=== PATIENT | male | born 1950 | race Caucasian/White ===

== ENCOUNTER → 2017-08-12 09:54 | Outpatient (CLI) | payer MEDICARE, OTHER, SELFPAY ==
[2017-08-12 11:19] LABS: AST(SGOT) 14 U/L (15-37); Alanine Aminotransfer ALT/SGPT 32 U/L (16-61); Albumin, Serum 4.2 g/dL (3.2-5.0); Alkaline Phosphatase 73 U/L (45-117); Bilirubin, Direct 0.28 mg/dL (0.00-0.30); Cholesterol 95 mg/dL (200); Globulin 2.8 g/dL (2.2-4.2); High Density Lipoprotein 41 mg/dL; Triglycerides 103 mg/dL; Very Low Density Lipoprotein 21 mg/dL (5-40)
== END ==
PROVIDERS: Family Provider Family Medicine; PCP Family Medicine; Visit Provider Nurse Practitioner Family
DX: I10 Essential (primary) hypertension (principal); E78.5 Hyperlipidemia, unspecified
CPT/HCPCS: 36415; 80061; 80076

== ENCOUNTER → 2017-09-14 06:51 | Outpatient (CLI) | payer MEDICARE, OTHER, SELFPAY ==
--- NOTE | 2017-09-14 16:50 | STRESSREP ---
Stress Test Report Exercise myocardial perfusion stress test. 67-year-old man with a history of coronary artery disease. FAA physical. Stress protocol: Resting EKG demonstrates normal sinus rhythm with a rate of 65 bpm. Resting blood pressure is 122/76 mmHg. The patient exercised according to the regular Casimiro protocol for total duration of 9 minutes completing stage III of the Casimiro protocol. The maximum heart rate attained was 166 bpm which was 109% of the maximum predicted heart rate the maximum workload was 10.1 metabolic equivalents. The patient maintained sinus rhythm throughout the recording. At rest there were no ST or T-wave changes noted suggest ischemia and at peak exercise upsloping ST changes only were noted with normally the criteria for ischemia. No clinical angina was noted no arrhythmias were noted. The test was terminated due to leg fatigue. The resting blood pressure was 122/76 with a peak blood pressure 168/80 mmHg. The rate pressure product was 27,800. Myocardial perfusion protocol: 14.9 mCi of technetium 99m sestamibi was injected at rest. The patient exercised according to regular Casimiro protocol for 9 minutes attaining 10.1 metabolic equivalents. At peak exercise 44.6 mCi of technetium 99m sestamibi was injected. Stress images were obtained. Stress and rest images were reconstructed and compared in the short axis vertical long and horizontal long axis. Gated images were also obtained. Perfusion SPECT analysis: Review of the stress images demonstrate normal uptake of tracer noted in the septum anterior wall and lateral wall. There is reduced perfusion noted in the basal and mid inferior wall on the stress and resting images to a similar extent. Previous inferior infarct or diaphragmatic attenuation cannot be excluded. No ischemia however is noted. Gated SPECT analysis. The gated ejection fraction is noted to be 66% with no wall motion abnormalities present. Conclusion: Normal exercise myocardial perfusion stress test at a high workload with no evidence of ischemia. Preserved ejection fraction.
== END ==
PROVIDERS: Family Provider Family Medicine; PCP Family Medicine; Visit Provider Nurse Practitioner Family
DX: I25.10 Atherosclerotic heart disease of native coronary artery without angina pectoris (principal); I10 Essential (primary) hypertension; E78.5 Hyperlipidemia, unspecified
CPT/HCPCS: 78452; 93017; A9500; A4216

== ENCOUNTER → 2018-03-25 11:21 | Outpatient (CLI) | payer MEDICARE, OTHER, SELFPAY ==
[2018-03-25 12:17] LABS: AST(SGOT) 14 U/L (15-37); Alanine Aminotransfer ALT/SGPT 23 U/L (16-61); Albumin, Serum 3.9 g/dL (3.2-5.0); Alkaline Phosphatase 58 U/L (45-117); Bilirubin, Direct 0.33 mg/dL (0.00-0.30); Cholesterol 110 mg/dL (200); Globulin 2.8 g/dL (2.2-4.2); High Density Lipoprotein 44 mg/dL; Protein, Total 6.7 g/dL (6.4-8.2); Triglycerides 104 mg/dL; Very Low Density Lipoprotein 21 mg/dL (5-40)
== END ==
PROVIDERS: Family Provider Family Medicine; PCP Family Medicine; Visit Provider Internal Medicine Cardiovascular Disease
DX: I10 Essential (primary) hypertension (principal); E78.5 Hyperlipidemia, unspecified
CPT/HCPCS: 36415; 80061; 80076

== ENCOUNTER → 2019-06-02 10:10 | Outpatient (CLI) | payer MEDICARE, OTHER, SELFPAY ==
[2019-06-02 09:26] VITALS: BMI 30.7
[2019-06-02 11:37] LABS: AST(SGOT) 14 U/L (15-37); Alanine Aminotransfer ALT/SGPT 22 U/L (16-61); Albumin, Serum 4.1 g/dL (3.2-5.0); Alkaline Phosphatase 139 U/L (45-117); Bilirubin, Direct 0.19 mg/dL (0.00-0.30); Cholesterol 180 mg/dL (200); High Density Lipoprotein 54 mg/dL; Protein, Total 7.1 g/dL (6.4-8.2); Triglycerides 265 mg/dL; Very Low Density Lipoprotein 53 mg/dL (5-40)
== END ==
PROVIDERS: Family Provider Family Medicine; PCP Family Medicine; Referring Provider Internal Medicine Cardiovascular Disease; Visit Provider Internal Medicine Cardiovascular Disease
DX: E78.2 Mixed hyperlipidemia (principal)
CPT/HCPCS: 36415; 80061; 80076

== ENCOUNTER → 2020-05-31 09:35 | Outpatient (CLI) | payer MEDICARE, OTHER, SELFPAY ==
[2020-05-31 12:20] LABS: AST(SGOT) 15 U/L (15-37); Alanine Aminotransfer ALT/SGPT 32 U/L (16-61); Albumin, Serum 4.1 g/dL (3.2-5.0); Alkaline Phosphatase 92 U/L (45-117); Bilirubin, Direct 0.23 mg/dL (0.00-0.30); Cholesterol 142 mg/dL (200); Globulin 2.7 g/dL (2.2-4.2); High Density Lipoprotein 46 mg/dL; Protein, Total 6.8 g/dL (6.4-8.2); Triglycerides 156 mg/dL; Very Low Density Lipoprotein 31 mg/dL (5-40)
== END ==
PROVIDERS: PCP Family Medicine; Referring Provider Internal Medicine Cardiovascular Disease; Visit Provider Internal Medicine Cardiovascular Disease
DX: I25.10 Atherosclerotic heart disease of native coronary artery without angina pectoris (principal); Z95.5 Presence of coronary angioplasty implant and graft
CPT/HCPCS: 36415; 80061; 80076

== ENCOUNTER → 2020-06-06 05:54 | Outpatient (CLI) | payer MEDICARE, OTHER, SELFPAY ==
[2020-05-31 09:08] VITALS: BMI 30.5
--- NOTE | 2020-06-06 16:33 | STRESSREP ---
Stress Test Report Exercise myocardial perfusion stress test. 69-year-old male with a history of LAD stenting and hypertension. Stress protocol: Resting EKG demonstrates sinus bradycardia with a rate of 57 bpm normal intervals are noted resting blood pressure is 142/86 mmHg. The patient exercised according to regular Casimiro protocol for a total duration of 6 minutes. The maximum heart rate attained was 142 bpm which was 95% of max impacted heart rate the maximum workload was 7 metabolic equivalents. The test was terminated due to target heart rate being achieved. At rest there were no EKG changes noted to suggest ischemia. The resting blood pressure was 142/86 with a peak blood pressure 194/88 mmHg. Myocardial perfusion protocol. 14.7 mCi of technetium 99m sestamibi was injected at rest. The patient exercised according to regular Casimiro protocol for total duration of 6 minutes. At peak exercise 44.6 mCi of technetium 99m sestamibi was injected stress images were obtained stress and rest images were reconstructed and compared in the short axis vertical long horizontal long axis. Gated images were also obtained Perfusion SPECT analysis: Review of the stress images demonstrate normal uptake of tracer noted in all areas of myocardium except for small portion of the inferior wall. The resting images similar demonstrate normal uptake of tracer noted in all areas of the myocardium. There appears to be mild ischemia involving the inferior wall.. Gated SPECT analysis of the gated ejection fraction is noted to be 65%. There is some GI uptake noted. Conclusion: Exercise myocardial perfusion stress test with possible mild inferior ischemia. Preserved ejection fraction. Compared to 2 years ago the exercise capacity appears to be markedly reduced.
== END ==
PROVIDERS: PCP Family Medicine; Referring Provider Internal Medicine Cardiovascular Disease; Visit Provider Internal Medicine Cardiovascular Disease
DX: Z95.5 Presence of coronary angioplasty implant and graft (principal)
CPT/HCPCS: 78452; 93017; A9500; A4216

== ENCOUNTER → 2020-06-09 10:14 | Outpatient (CLI) | payer MEDICARE, OTHER, SELFPAY ==
[2020-05-31 09:08] VITALS: BMI 30.5
--- NOTE | 2020-06-09 10:17 | RAD_ITS ---
STUDY: X-RAY CHEST REASON FOR EXAM: Male, 69 years old. PRE HEART CATH TECHNIQUE: PA and lateral views of the chest. COMPARISON: 12/06/2014 FINDINGS: The lungs are clear and expanded. There is no demonstrated pleural abnormality. Normal size heart. Normal mediastinum and kalpesh. Normal visualized pulmonary arteries. Normal visualized aortic arch and descending thoracic aorta. Normal visualized thoracic spine. Normal visualized ribs, clavicles, and shoulders. There is no demonstrated abnormality of the visualized soft tissue structures of the upper abdomen. RAD/Chest PA and Lateral IMPRESSION: Normal x-ray examination of the chest. Electronically Signed: Kevin Mendiola DO at 11:17 EST Tel , Service support ,
[2020-06-09 11:12] LABS: Absolute Lymphocyte Count 1.18 X10^3/uL (0.83-4.51); Absolute Neutrophil Count 2.8 X10^3/uL (2.0-7.7); Basophil# 0.03 X10^3/uL; Basophil% 0.7 % (0-1); Eosinophil# 0.12 X10^3/uL; Eosinophils% 2.7 % (0-5); Hematocrit 47.4 % (40-54); Hemoglobin 16.5 g/dL (13.0-16.5); Lymphocyte # 1.18 X10^3/ul (4.0); Lymphocyte % 26.5 % (19-41); Mean Corp Hgb Conc 34.8 g/dL (32-36); Mean Corpuscular Hgb 31.2 pg (27.0-32.0); Mean Corpuscular Volume 89.6 fL (80-94); Mean Platelet Vol. 9.7 fl (6.2-12.0); Monocyte# 0.31 X10^3/uL; NRBC Flagged by Analyzer 0 % (0-5); Neutrophil % 62.9 % (47-70); Platelet Count 207 K/mm3 (150-450); RBC Distribution Width CV 12.3 % (11.6-14.6); RBC Distribution Width SD 40.2 fl (35.1-43.9); Red Blood Count 5.29 M/mm3 (4.6-6.2); White Blood Count 4.5 K/mm3 (4.4-11.0)
[2020-06-09 11:51] LABS: AST(SGOT) 16 U/L (15-37); Alanine Aminotransfer ALT/SGPT 28 U/L (16-61); Albumin, Serum 3.9 g/dL (3.2-5.0); Alkaline Phosphatase 96 U/L (45-117); Anion Gap 4 (5-15); BUN 13 mg/dL (7-18); Bilirubin, Direct 0.22 mg/dL (0.00-0.30); Calcium,Total 8.8 mg/dL (8.5-10.1); Chloride 106 mmol/L (98-107); Cholesterol 161 mg/dL (200); Creatinine, Serum 1.18 mg/dL (0.70-1.30); EST Glomerular Filtration Rate 65 mL/min (>60); Est Glom Filt Rate - Afr Amer 78 mL/min (>60); Globulin 2.9 g/dL (2.2-4.2); Glucose 199 mg/dL (74-106); High Density Lipoprotein 46 mg/dL; Potassium 3.8 mmol/L (3.5-5.1); Protein, Total 6.8 g/dL (6.4-8.2); Sodium Level 140 mmol/L (136-145); Triglycerides 247 mg/dL; Very Low Density Lipoprotein 49 mg/dL (5-40)
== END ==
PROVIDERS: PCP Family Medicine; Referring Provider Internal Medicine Cardiovascular Disease; Visit Provider Internal Medicine Cardiovascular Disease
DX: R94.39 Abnormal result of other cardiovascular function study (principal); R07.9 Chest pain, unspecified; I25.10 Atherosclerotic heart disease of native coronary artery without angina pectoris; I10 Essential (primary) hypertension; E78.5 Hyperlipidemia, unspecified; E78.00 Pure hypercholesterolemia, unspecified; Z95.5 Presence of coronary angioplasty implant and graft; Z79.02 Long term (current) use of antithrombotics/antiplatelets
CPT/HCPCS: 71046; 80048; 80061; 80076; 85025

== ENCOUNTER 2020-06-20 06:47 | Day surgery (SDC) | payer MEDICARE, OTHER, SELFPAY ==
[2020-05-31 09:08] VITALS: BMI 30.5
[2020-06-19 07:20] VITALS: BMI 30.5
--- NOTE | 2020-06-20 07:00 | HP_ITS ---
HPI HPI History of Present Illness Details: WOODY KERNS, is a 69 M who presents to the office today for a cardiovascular outpatient follow-up. He has a history of coronary artery disease status post stenting to his LAD and diagonal vessel bifurcation in December 2009, hypertension, hyperlipidemia, and MING with CPAP therapy. He does complain of some epigastric discomfort which appears to be constant. Is been the last 2 days. He has had no dizziness or diaphoresis no near syncope or syncope his last stress test was in 2017. His physical exam here demonstrates clear lung swain regular rate and rhythm and no pedal edema. Intake Vital Signs 05/31/20 Height 6 ft 05/31/20 Weight: 225 lb 05/31/20 BMI 30.5 05/31/20 BP 128/73 H 05/31/20 Respiration 16 05/31/20 Pulse 62 05/31/20 Pulse Oximetry (%) 96 Intake Visit Reasons: 1 Y FU Allergies codeine Adverse Reaction (Unknown, Verified 05/31/20 09:08) GI upset Sulfa (Sulfonamide Antibiotics) Adverse Reaction (Unknown, Verified 05/31/20 09:08) Unknown Medications aspirin 81 mg tablet,delayed release 81 mg PO QDAY 07/31/17 [History Confirmed 05/31/20] tamsulosin 0.4 mg capsule 0.4 mg PO QDAY 08/12/17 [History Confirmed 05/31/20] ramipril 2.5 mg capsule 2.5 mg PO DAILY #90 cap 07/18/19 [Rx Confirmed 05/31/20] atorvastatin 80 mg tablet 80 mg PO QDAY #90 tab 11/24/19 [Rx Confirmed 05/31/20] clopidogrel 75 mg tablet 75 mg PO QDAY #90 tab 04/03/20 [Rx Confirmed 05/31/20] finasteride 5 mg tablet 5 mg PO DAILY tab 05/31/20 [History Confirmed 05/31/20] fluorouracil 5 % topical cream applic TOPICAL 05/31/20 [History Confirmed 05/31/20] fluoxetine 20 mg capsule 20 mg PO DAILY cap 05/31/20 [History Confirmed 05/31/20] Ejection fraction %: 60 to 64 [facility] Medical History Atherosclerosis of [place] coronary artery of [place] heart without angina pectoris (Chronic) Essential (primary) hypertension (Chronic) Hyperlipidemia (Chronic) MING (obstructive sleep apnea) (Chronic) Obesity (Chronic) Surgical History History of coronary artery stent placement (Resolved 12/25/09) History of left heart catheterization (Chronic 11/02/12) History of arthroscopic knee surgery (Resolved) History of lithotripsy (Resolved) History of open reduction and internal fixation (ORIF) procedure (Resolved) History of open reduction and internal fixation (ORIF) procedure (Resolved 03/2019) History of tonsillectomy and adenoidectomy (Resolved) Family History Uncle CAD (coronary artery disease) Myocardial infarction Father Valvular heart disease Mother Brain tumor Social History (Updated 05/31/20 @ 10:[address] Xu Ponce MD) Smoking Status: Former smoker how long ago did patient quit smokin alcohol intake: current alcohol intake frequency: a few times a week Alcohol type: beer, wine substance use type: does not use diet: Weight Watchers, other caffeine: Yes Type: coffee Number of servings: 2 what type of physical activity do you participate in: none seatbelt use: always do you feel safe at home: Yes ROS Const Const: Negative for fatigue, weakness, headache(s), frequent falls, difficulty sleeping or excessive sweating Eyes Eyes: Negative for loss of peripheral vision, transient loss of vision, blurry vision, double vision or tunnel vision ENT ENT: Negative for headache(s), dizziness, Nosebleed/epistaxis or balance problems Cardio Chest Pain: Yes (constant dull epigastric pain for 2 days along with lumbar back pain) Palpitations: No Edema: None Muscle aches with walking: None Resp Respiratory: Negative for SOB with activity, SOB at rest, SOB orthopnea\SOB lying down, Cough or paroxysmal nocturnal dyspnea GI GI: Negative nausea, vomiting, heartburn or black,tarry stools : Negative for hematuria Musc Musc: Negative for muscle aches/ myalgia, muscle weakness, joint pain or balance problems Skin Skin: Negative non-healing lesions, rash or unusual bruising Neuro Neuro: Negative for dizziness, lightheadedness, near syncope, syncope, orthostatic symptoms, frequent falls, headache(s), weakness, blurry vision, double vision or lack of coordination Adolph Hematologic/Lymphatic: Negative for easy bleeding or easy bruising Endo Endo: Negative for fatigue, excessive sweating or increased thirst/drinking Psych Psych: Negative for anxiety or depression Allergy Allergy/Immunology: Negative for hives, Negative for rash Cardiology Exam Const Appearance: cooperative, healthy appearing, no acute distress, well developed and well groomed Nutritional Appearance: average body habitus and well nourished Orientation: alert, awake and oriented x3 Head Head: normal to inspection, normocephalic and atraumatic Ears: hearing grossly normal bilaterally and external ears normal Nose: external nose normal, nares normal, nasal mucous membranes and turbinates normal, septum normal, no nasal discharge Face and Sinus: face symmetric Mouth: oral mucosae normal, tongue normal, oropharynx normal and moist mucous membranes Teeth and gingiva: dentition normal Throat: posterior oropharynx normal, tonsils normal and uvula midline Eyes General: appearance normal, both eyes and all related structures Eyelids: eyelids normal Conjunctivae: conjunctivae normal Pupils: PERRL, normal by confrontation and accommodation normal EOM: EOM intact bilaterally Neck Neck: normal visual inspection, trachea midline and no JVD JVD: +5 Carotids: normal carotid upstroke and bounding pulses Chest Chest inspection: normal inspection of the chest, symmetric chest movement and normal respiratory effort Auscultation: Bilateral: Clear to Auscultation Cardio Palpation: normal PMI Rate: regular rate Rhythm: regular rhythm Heart sounds: S1 normal, S2 normal and normal, physiologic split S2; negative rub, gallop or murmur GI GI: normal to inspection, soft, no hepatosplenomegaly and bowel sounds present Neuro General: alert, awake, oriented x3, gait normal, moves all extremities and no focal sensory deficit Skin Skin: no rashes or lesions noted Extremities Pulses: Normal: Right Femoral Pulse, Left Femoral Pulse, Right Dorsalis Pedis Pulse, Left Dorsalis Pedis Pulse, Right Posterior Tibial Pulse, Left Posterior Tibial Pulse, Right Radial Pulse, Left Radial Pulse Lower Extremity Edema: None: Bilateral Musculoskel Musculoskeletal: No joint tenderness Psych Psychological: normal affect Assessment & Plan 1. History of coronary artery stent placement Z95.5 [id number] LAD/diagonal bifurication w/ 3.0 x 23 mm Promus 12/25/2009 Plan He is status post previous angioplasty and stenting of the left anterior descending artery. I would recommend at this time that we consider his stress test to exclude coronary ischemia. His epigastric discomfort though unusual could manifest the above. Depending on the findings further recommendations will be made. Orders Orders: Liver Profile Today Nuclear Stress Test - Treadmil Today 2. Essential (primary) hypertension I10 Plan He does have a history of hypertension his blood pressure is under good control at this particular time and I would not recommend that we make any changes. 3. Mixed hyperlipidemia E78.2 Plan He does have a history of hyperlipidemia. His most recent lipid profile is pending. He will remain on his high intensity statin. Thank you for allowing me to participate in his care. Plan Detail Other Orders Orders: Lipid Profile Today I25.10 Follow Up 1 Year (r) Coding Level of Care Code Off vis,est,level 3 Diagnoses History of coronary artery stent placement Z95.5 Essential (primary) hypertension I10 Mixed hyperlipidemia E78.2 ??Hyperlipidemia type: mixed hyperlipidemia Coding Level of Care Code Off vis,est,level 3 Diagnoses History of coronary artery stent placement Z95.5 Essential (primary) hypertension I10 Mixed hyperlipidemia E78.2 ??Hyperlipidemia type: mixed hyperlipidemia Supplemental Info Supplemental Information Labs LDL Cholesterol 73 mg/dL (0-130) 06/02/19 HDL Cholesterol 54 mg/dL (40-) 06/02/19 Triglycerides 265 mg/dL (-199) H 06/02/19 VLDL Cholesterol 53 mg/dL (5-40) H 06/02/19 Diagnostics Stress Test Nuclear Medicine 09/14/17 Stress Test 09/14/17
--- NOTE | 2020-06-20 09:00 | CL.D_ITS ---
Patient Name: WOODY KERNS Study Date: 06/20/2020 Performing: Xu Ponce MD Ht: 72.04 inches 183 cm : 1950 Wt: 224.87 lbs 102 kg Age: 69 Gender: male BSA: 2.24 PROCEDURE(S) PERFORMED [id number]/LV CLINICAL PROFILE AND INDICATIONS Indications: Suspected CAD Heart Failure: None Stress/Imaging Date: 06/06/2020Stress Test with SPECT MPI: Positive Intermediate Risk CAD Presentations: No Sxs, no angina. CONCLUSIONS Non obstructive coronary arteries RECOMMENDATIONS Medical therapy DESCRIPTION OF PROCEDURE The patient arrived to the procedure lab. The risks and benefits of the procedure as well as a full d escription of our services here and current unavailability of surgical backup were fully explained to the patient and/or their significant other prior to the catheterization. The Timeout was completed, verifying the correct patient and procedure. The patient's procedural site was prepped and draped in the usual fashion. Local anesthetic was given subcutaneously to right radial region with Lidocaine 2% . Using a modified Seldinger technique, arterial access was obtained via the right radial artery, a 6 Fr sheath was inserted. Right Coronary Artery selective angiography was performed in multiple views using a 5 Fr. 4.0 [place] catheter. Left Coronary Artery selective angiography was performed in multipl e views using a 5 Fr. 4.0 [place] catheter. Left Ventriculography was performed in ROLDAN projection using a 5 Fr. Pigtail catheter. LV to AO pullback pressures were then recorded.The arterial sheath was pulled and a TR Band was applied for hemostasis CORONARY ANGIOGRAPHY DOMINANCE: Right Dominant LEFT HEART ASSESSMENT Left Ventricular Ejection Fraction: by LV Gram 60 % Normal LV wall motion Normal Left Ventricular systolic function LEFT MAIN: Angiographically normal LEFT ANTERIOR DESCENDING ARTERY: No significant disease noted PROX LAD: Previously placed stent is patent CIRCUMFLEX ARTERY: Mild luminal irregularities less than 30% RIGHT CORONARY ARTERY: Mild luminal irregularities less than 30% COMPLICATIONS No Complications PROCEDURE MEDICATIONS Versed 1 mg IV Fentanyl 50 mcg IV Oxygen: 2 L/min via nasal cannula Heparin diluted in 23cc Heparinized saline. Patient given 10cc IA of this solution. 06/20/2020 08:12: 09 Verapamil 2.5mg, Ntg 100mcgs, 2000 units of Heparin diluted in 23cc Heparinized saline. Patient give n 10cc IA of this solution. 06/20/2020 08:12:09 SUMMARY OF HEMODYNAMIC DATA Time AIR REST ECG 07:03:26 AO 120/66 (86) SA 08:13:10 AO 144/72 (96) 08:33:03 LV 142/12, 25 08:45:00 LV 141/14, 25 08:45:06 LV 136/23, 28 08:45:41 LVp 137/21, 28 08:45:44 AOp 140/82 (108) 08:45:50 Signed By Xu Ponce MD On 06/20/2020 08:59:11 Xu Ponce MD
== END 2020-06-20 10:40 | disposition home or self-care (01) ==
LOC: CLSP 06:49
PROVIDERS: PCP Family Medicine; Referring Provider Internal Medicine Cardiovascular Disease; Visit Provider Internal Medicine Cardiovascular Disease
DX: I25.10 Atherosclerotic heart disease of native coronary artery without angina pectoris (principal); I10 Essential (primary) hypertension; G47.33 Obstructive sleep apnea (adult) (pediatric); Z79.899 Other long term (current) drug therapy; Z79.82 Long term (current) use of aspirin; Z79.02 Long term (current) use of antithrombotics/antiplatelets; E66.9 Obesity, unspecified; Z87.891 Personal history of nicotine dependence; Z68.30 Body mass index [BMI] 30.0-30.9, adult; E78.2 Mixed hyperlipidemia
CPT/HCPCS: 93458; 99152; 99153; J7040; Q9967; C1769; C1894

== ENCOUNTER → 2021-05-22 09:09 | Outpatient (CLI) | payer MEDICARE, OTHER, SELFPAY ==
[2021-05-22 11:04] LABS: AST(SGOT) 25 U/L (15-37); Alanine Aminotransfer ALT/SGPT 39 U/L (16-61); Albumin, Serum 3.8 g/dL (3.2-5.0); Alkaline Phosphatase 78 U/L (45-117); Bilirubin, Direct 0.31 mg/dL (0.00-0.30); Cholesterol 132 mg/dL (200); Globulin 2.9 g/dL (2.2-4.2); High Density Lipoprotein 44 mg/dL; Protein, Total 6.7 g/dL (6.4-8.2); Triglycerides 154 mg/dL; Very Low Density Lipoprotein 31 mg/dL (5-40)
== END ==
PROVIDERS: PCP Family Medicine; Referring Provider Nurse Practitioner Family; Visit Provider Nurse Practitioner Family
DX: E78.2 Mixed hyperlipidemia (principal)
CPT/HCPCS: 36415; 80061; 80076

== ENCOUNTER → 2022-06-12 | Outpatient (CLI) | payer MEDICARE, OTHER, SELFPAY ==
[2022-06-12 11:23] LABS: AST(SGOT) 14 U/L (15-37); Alanine Aminotransfer ALT/SGPT 29 U/L (16-61); Alkaline Phosphatase 70 U/L (45-117); Bilirubin, Direct 0.35 mg/dL (0.00-0.30); Cholesterol 119 mg/dL (200); Globulin 2.9 g/dL (2.2-4.2); High Density Lipoprotein 48 mg/dL; Protein, Total 6.9 g/dL (6.4-8.2); Triglycerides 110 mg/dL; Very Low Density Lipoprotein 22 mg/dL (5-40)
== END | disposition home or self-care (01) ==
PROVIDERS: PCP Family Medicine; Visit Provider Internal Medicine Cardiovascular Disease
DX: E78.5 Hyperlipidemia, unspecified (principal); I10 Essential (primary) hypertension; G47.33 Obstructive sleep apnea (adult) (pediatric)
CPT/HCPCS: 36415; 80061; 80076

== ENCOUNTER → 2022-06-27 | Outpatient (CLI) | payer MEDICARE, OTHER, SELFPAY ==
--- NOTE | 2022-06-27 06:28 | ECHOD_ITS ---
Reason For Study: CAD/ASHD Procedure This was a 2D Doppler, Color Flow transthoracic echocardiogram. Exam performed in department. Left Ventricle Normal LV size. Left ventricular systolic function is normal. The estimated ejection fraction is 60 %. Stage 1 diastolic dysfunction. No regional wall motion abnormalities noted. Right Ventricle Normal RV size. Normal systolic function. Atria Normal left atrium. Normal right atrium. Mitral Valve Normal mitral valve. Tricuspid Valve Normal tricuspid valve. Mild tricuspid valve insufficiency. Aortic Valve Trisinus/trileaflet aortic valve. Mild focal aortic valve calcification. Pulmonic Valve Normal pulmonic valve. Trivial pulmonic valve insufficiency. Great Vessels Normal aortic root. The pulmonary artery is normal size. Normal inferior vena cava. Pericardium/Pleural No pericardial effusion. MMode/2D Measurements & Calculations LVIDd: 4.3 cm IVSd: 0.99 cm LVOT diam: 2.1 cm LVIDs: 3.4 cm LVPWd: 1.3 cm LVOT area: 3.5 cm2 RVDd: 4.3 cm FS: 20.0 % Ao root diam: 3.0 cm LAV(MOD-bp): 74.4 ml LVAd ap4: 27.5 cm2 LAV(MOD-bp) Indexed: 34.1 ml/m2 LVLd ap4: 8.2 cm LAV(MOD-sp2): 88.9 ml EDV(MOD-sp4): 79.7 ml LAV(MOD-sp4): 60.7 ml EDV(sp4-el): 78.7 ml LVAs ap4: 16.3 cm2 LVLs ap4: 6.2 cm ESV(MOD-sp4): 35.4 ml ESV(sp4-el): 36.3 ml EF(MOD-sp4): 55.6 % EF(sp4-el): 53.9 % SV(MOD-sp4): 44.3 ml SV(sp4-el): 42.4 ml LA A4 area: 21.0 cm2 LA dimension(2D): 4.4 cm RA A4 area: 12.5 cm2 Time Measurements MV dec time: 0.26 sec Doppler Measurements & Calculations MV E max ethan: 57.9 cm/sec Lat Peak E' Ethna: 7.5 cm/sec Med Peak E' Ethan: 5.4 cm/sec MV A max ethan: 72.8 cm/sec E/E' lat: 7.7 E/E' med: 10.7 MV E/A: 0.80 MV V2 max: 81.8 cm/sec Ao V2 max: 154.5 cm/sec MV max P.7 mmHg MV dec slope: 228.0 cm/sec2 Ao max P.6 mmHg MV V2 mean: 44.0 cm/sec Ao V2 mean: 108.1 cm/sec MV mean P.90 mmHg Ao mean P.4 mmHg MV V2 VTI: 24.8 cm Ao V2 VTI: 34.9 cm AV (velocity ratio): 0.70 MVA(VTI): 3.4 cm2 MARIAMA(I,D): 2.4 cm2 MARIAMA(V,D): 2.3 cm2 LV V1 max: 102.8 cm/sec SV(LVOT): 84.7 ml PA V2 max: 83.7 cm/sec LV V1 max P.2 mmHg PA V2 mean: 50.6 cm/sec LV V1 mean P.2 mmHg LV V1 mean: 68.7 cm/sec LV V1 VTI: 24.4 cm ECHO/Echo Complete Interpretation Summary Normal LV size. Left ventricular systolic function is normal. The estimated ejection fraction is 60 %. Stage 1 diastolic dysfunction. Ordering Physician: Xu Ponce Referring Physician: MD Louis Josue Performed By: Chelo Garcia RCS
--- NOTE | 2022-06-27 16:36 | STRESSREP ---
Stress Test Report Exercise myocardial perfusion stress test. 71-year-old man with a history of chest pain Stress protocol: Resting EKG demonstrates normal sinus rhythm with a rate of 60 bpm resting blood pressure is 108/68 mmHg. The patient exercised according to the regular Casimiro protocol for a total duration of 8 minutes and 30 seconds attaining a maximum heart rate of 162 bpm which was 110% of max impacted heart rate the maximum workload was 10.1 metabolic equivalents. At rest there were no ST or T wave changes noted suggest ischemia and at peak exercise upsloping ST changes only were noted we did not meet the criteria for ischemia. No clinical angina was noted the test was terminated due to the target heart rate being achieved. The peak blood pressure was 200/80 mmHg. Rate-pressure product was 32,400. Myocardial perfusion protocol. 14.8 mCi of technetium 99m sestamibi was injected at rest. The patient exercised according to regular Casimiro protocol for total duration of 8 minutes and 30 seconds and at peak exercise 44.3 mCi of technetium 99m sestamibi was injected stress images were obtained stress and rest images were reconstructed in comparing the short axis vertical long and horizontal long axis. Gated images were also obtained. Perfusion SPECT analysis: Review of the stress images demonstrate normal uptake of tracer noted in all areas of the myocardium. The resting images similarly demonstrate normal uptake of tracer noted in all areas of the myocardium. No areas of reversibility are noted to suggest ischemia no previous infarct was noted. Gated SPECT analysis: The gated ejection fraction is 59. Conclusion: Normal exercise myocardial perfusion stress test at a high workload Preserved ejection fraction.
== END | disposition home or self-care (01) ==
LOC: CVS 06:28
PROVIDERS: PCP Family Medicine; Visit Provider Internal Medicine Cardiovascular Disease
DX: I25.10 Atherosclerotic heart disease of native coronary artery without angina pectoris (principal); R07.9 Chest pain, unspecified; Z95.5 Presence of coronary angioplasty implant and graft
CPT/HCPCS: 78452; 93017; 93306; A9500; A4216

== ENCOUNTER → 2023-06-15 | Outpatient (CLI) | payer MEDICARE, OTHER, SELFPAY ==
[2023-06-15 11:55] LABS: AST(SGOT) 17 U/L (15-37); Alanine Aminotransfer ALT/SGPT 28 U/L (16-61); Alkaline Phosphatase 75 U/L (45-117); Bilirubin, Direct 0.28 mg/dL (0.00-0.30); Cholesterol 115 mg/dL (200); Globulin 2.6 g/dL (2.2-4.2); High Density Lipoprotein 48 mg/dL; Protein, Total 6.6 g/dL (6.4-8.2); Triglycerides 103 mg/dL; Very Low Density Lipoprotein 21 mg/dL (5-40)
== END | disposition home or self-care (01) ==
LOC: LAB 10:02
PROVIDERS: PCP Family Medicine; Referring Provider Nurse Practitioner Family; Visit Provider Nurse Practitioner Family
DX: E78.00 Pure hypercholesterolemia, unspecified (principal)
CPT/HCPCS: 36415; 80061; 80076

== ENCOUNTER → 2024-06-20 | Outpatient (CLI) | payer MEDICARE, OTHER, SELFPAY ==
[2024-06-20 10:07] LABS: AST(SGOT) 17 U/L (15-37); Alanine Aminotransfer ALT/SGPT 27 U/L (16-61); Albumin, Serum 3.9 g/dL (3.2-5.0); Alkaline Phosphatase 81 U/L (45-117); Bilirubin, Direct 0.36 mg/dL (0.00-0.30); Cholesterol 128 mg/dL (200); Globulin 2.7 g/dL (2.2-4.2); High Density Lipoprotein 45 mg/dL; Protein, Total 6.6 g/dL (6.4-8.2); Triglycerides 131 mg/dL; Very Low Density Lipoprotein 26 mg/dL (5-40)
== END | disposition home or self-care (01) ==
LOC: LAB 09:23
PROVIDERS: PCP Family Medicine; Referring Provider Nurse Practitioner Family; Visit Provider Nurse Practitioner Family
DX: E78.00 Pure hypercholesterolemia, unspecified (principal)
CPT/HCPCS: 36415; 80061; 80076

== ENCOUNTER → 2024-07-15 | Outpatient (CLI) | payer MEDICARE, OTHER, SELFPAY ==
--- NOTE | 2024-07-15 09:38 | STRESSREP ---
Stress Test Report Exercise myocardial perfusion stress test. 73-year-old man with a history of chest pain Stress protocol: Resting EKG demonstrates normal sinus rhythm with a rate of 65 bpm resting blood pressure is 122/78 mmHg. The patient exercised according to the regular Casimiro protocol for a total duration of 8 minutes attaining a maximum heart rate of 155 bpm which was 106% of maximum predicted heart rate; the maximum workload was 10.1 metabolic equivalents. At rest there were no ST or T wave changes noted to suggest ischemia and at peak exercise upsloping ST changes only were noted which did not meet the criteria for ischemia. No clinical angina was noted the test was terminated due to the target heart rate being achieved/fatigue. The peak blood pressure was 170/72 mmHg. Rate-pressure product was 22,000. Myocardial perfusion protocol. 14.9 mCi of technetium 99m sestamibi was injected at rest. The patient exercised according to regular Casimiro protocol for total duration of 8 minutes and at peak exercise 44.3 mCi of technetium 99m sestamibi was injected stress images were obtained stress and rest images were reconstructed in comparing the short axis vertical long and horizontal long axis. Gated images were also obtained. Perfusion SPECT analysis: Review of the stress images demonstrate normal uptake of tracer noted in all areas of the myocardium. The resting images similarly demonstrate normal uptake of tracer noted in all areas of the myocardium. No areas of reversibility are noted to suggest ischemia no previous infarct was noted. Gated SPECT analysis: The gated ejection fraction is 62%. Conclusion: Normal exercise myocardial perfusion stress test at a high workload Preserved ejection fraction.
== END | disposition home or self-care (01) ==
LOC: CVS 06:53
PROVIDERS: PCP Family Medicine; Referring Provider Internal Medicine Cardiovascular Disease; Visit Provider Internal Medicine Cardiovascular Disease
DX: I25.10 Atherosclerotic heart disease of native coronary artery without angina pectoris (principal)
CPT/HCPCS: 78452; 93017; A9500; A4216

== ENCOUNTER → 2024-08-24 | Outpatient (CLI) | payer MEDICARE, OTHER, SELFPAY ==
[2024-08-24 10:15] LABS: AST(SGOT) 16 U/L (15-37); Alanine Aminotransfer ALT/SGPT 31 U/L (16-61); Albumin, Serum 3.7 g/dL (3.2-5.0); Alkaline Phosphatase 73 U/L (45-117); Bilirubin, Direct 0.34 mg/dL (0.00-0.30); Globulin 2.9 g/dL (2.2-4.2); Protein, Total 6.6 g/dL (6.4-8.2)
== END | disposition home or self-care (01) ==
LOC: LAB 09:17
PROVIDERS: PCP Family Medicine; Referring Provider Physician Assistant Medical; Visit Provider Internal Medicine Cardiovascular Disease
DX: I25.10 Atherosclerotic heart disease of native coronary artery without angina pectoris (principal); E78.2 Mixed hyperlipidemia; E80.6 Other disorders of bilirubin metabolism
CPT/HCPCS: 36415; 80076

== ENCOUNTER → 2024-12-13 | Outpatient (CLI) | payer MEDICARE, OTHER, SELFPAY ==
[2024-12-13 09:03] LABS: AST(SGOT) 20 U/L (<=37); Alanine Aminotransfer ALT/SGPT 17 U/L (<=46); Albumin, Serum 4.4 g/dL (3.4-4.8); Alkaline Phosphatase 80 U/L (40-129); Bilirubin, Direct 0.34 mg/dL (0.00-0.30); Cholesterol 140 mg/dL (<=200); High Density Lipoprotein 40 mg/dL; Low Density Lipoprotein Calc. 73 mg/dL; Protein, Total 6.4 g/dL (5.9-8.4); Total Bilirubin 0.89 mg/dL (0.00-1.30); Triglycerides 136 mg/dL; Very Low Density Lipoprotein 27 mg/dL (5-40); cholesterol:hdl ratio screen 3.48
== END | disposition home or self-care (01) ==
PROVIDERS: PCP Family Medicine; Referring Provider Nurse Practitioner Family; Visit Provider Nurse Practitioner Family
DX: E78.2 Mixed hyperlipidemia (principal); I10 Essential (primary) hypertension; I25.10 Atherosclerotic heart disease of native coronary artery without angina pectoris; Z95.5 Presence of coronary angioplasty implant and graft
CPT/HCPCS: 36415; 80061; 80076

== ENCOUNTER → 2025-06-20 | Outpatient (CLI) | payer MEDICARE, OTHER, SELFPAY ==
[2025-06-20 10:49] LABS: Hematocrit 47.8 % (40-54); Hemoglobin 16.3 g/dL (13.0-16.5); Immature Granulocytes Count 0.010 X10^3/uL (0.0-0.0); Mean Corp Hgb Conc 34.1 g/dL (32-36); Mean Corpuscular Volume 86.8 fL (80-94); Mean Platelet Vol. 10.3 fl (6.2-12.0); NRBC Flagged by Analyzer 0 % (0-5); Platelet Count 177 K/mm3 (150-450); RBC Distribution Width CV 13.2 % (11.6-14.6); RBC Distribution Width SD 41.9 fl (35.1-43.9); Red Blood Count 5.51 M/mm3 (4.6-6.2); White Blood Count 4.7 K/mm3 (4.4-11.0)
[2025-06-20 11:26] LABS: AST(SGOT) 19 U/L (<=37); Alanine Aminotransfer ALT/SGPT 16 U/L (<=46); Albumin, Serum 4.5 g/dL (3.4-4.8); Alkaline Phosphatase 90 U/L (40-129); Anion Gap 9 (5-15); BUN 12 mg/dL (4-19); BUN/Creat Ratio 10.9 RATIO (10-20); Bilirubin, Direct 0.42 mg/dL (0.00-0.30); Calcium,Total 9.4 mg/dL (7.6-11.0); Carbon Dioxide 26.7 mmol/L (21.0-32.0); Chloride 104 mmol/L (98-108); Cholesterol 136 mg/dL (<=200); Globulin 2.3 g/dL (2.2-4.2); Glucose 117 mg/dL (70-99); Low Density Lipoprotein Calc. 72 mg/dL; Potassium 4.6 mmol/L (3.3-5.1); Triglycerides 144 mg/dL; Very Low Density Lipoprotein 29 mg/dL (5-40); cholesterol:hdl ratio screen 3.51
[2025-06-20 11:27] LABS: Pro- Brain NATRIURETIC PEPTIDE < 36 pg/mL (<=1800)
== END | disposition home or self-care (01) ==
LOC: LAB 09:40
PROVIDERS: PCP Pediatrics; Referring Provider Nurse Practitioner Family; Visit Provider Nurse Practitioner Family
DX: I25.10 Atherosclerotic heart disease of native coronary artery without angina pectoris (principal); I10 Essential (primary) hypertension; E78.2 Mixed hyperlipidemia; R06.09 Other forms of dyspnea; R53.83 Other fatigue
CPT/HCPCS: 36415; 80053; 80061; 82248; 83880; 84443; 85025